=== PATIENT | male | born 1975 | race African-American/Black ===

== ENCOUNTER 2017-05-09 01:35 | Emergency (ER) | payer OTHER ==
[2017-05-09 01:49] VITALS: BP 140/89; PULSE 78; RESP 16; TEMP 98
[2017-05-09] MEDS ORDERED: HYDROCORTISONE 2.5% RECTAL CREAM 30 GM TUBE RECTAL STA (01:54)
[2017-05-09] MEDS ORDERED: BISACODYL 5 MG TABLET.DR PO STA (01:54)
[2017-05-09] MEDS ORDERED: HYDROcodone/APAP 5-325MG 1 EACH TAB PO STA (01:54)
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
== END 2017-05-09 02:21 | disposition home or self-care (01) ==
LOC: EC 01:35
DX: K64.5 Perianal venous thrombosis (principal); F17.200 Nicotine dependence, unspecified, uncomplicated
CPT/HCPCS: 99283